=== PATIENT | female | born 1950 | race Caucasian/White ===

== ENCOUNTER 2017-05-23 10:33 | Outpatient (RCR) | payer OTHER ==
[~2017-05-23 10:33] MED LIST: ALLOPURINOL300 MG PO; BACTRIM DS TAB1 EACH PO; D3 PO; FISH OIL 1,0001 EAC1 PO; FLUOCINONIDE 0.05% 1 EA/15 GM TUBE ONE; HYDROXYZINE HCL25 MG PO; LASIX40 MG PO; LEVAMIR SC; LEVAQUIN500 MG PO; LEVEMIR100 UNIT/1 SC; LIDOCAINE VISC 2% SOLN 15 ML UDC ONE; LORAZEPAM1 MG PO; LYRICA50 MG PO; MELOXICAM7.5 MG PO; METOPROLOL TART50 MG PO; NORCO 10-325 T1 EACH PO; OMEPRAZOLE40 MG PO; PAXIL20 MG PO; PEPCID20 MG PO; PLAVIX75 MG PO; POTASSIUM CHLO10 ME1 PO; SIMVASTATIN40 MG PO; SOMA350 MG PO; TRAZODONE HCL100 MG PO; VICTOZA 3-0.6 MG/0.1 SC
[2017-05-23] MEDS ORDERED: LIDOCAINE/PRILOCAINE 2.5-2.5% KIT ONE (14:24)
[2017-05-23] MEDS ORDERED: FLUOCINONIDE 0.05% 1 EA/15 GM TUBE ONE (14:24)
== END 2017-05-26 ==
LOC: WCC 10:33
PROVIDERS: ATTEND Family Medicine Adult Medicine
DX: T86.821 Skin graft (allograft) (autograft) failure (principal); E11.65 Type 2 diabetes mellitus with hyperglycemia; E11.40 Type 2 diabetes mellitus with diabetic neuropathy, unspecified; E11.621 Type 2 diabetes mellitus with foot ulcer; L89.322 Pressure ulcer of left buttock, stage 2; L97.822 Non-pressure chronic ulcer of other part of left lower leg with fat layer exposed; L97.522 Non-pressure chronic ulcer of other part of left foot with fat layer exposed; L97.412 Non-pressure chronic ulcer of right heel and midfoot with fat layer exposed; I87.332 Chronic venous hypertension (idiopathic) with ulcer and inflammation of left lower extremity; S81.801A Unspecified open wound, right lower leg, initial encounter; I82.449 Acute embolism and thrombosis of unspecified tibial vein; I83.12 Varicose veins of left lower extremity with inflammation; I83.11 Varicose veins of right lower extremity with inflammation; I89.0 Lymphedema, not elsewhere classified; R60.0 Localized edema; M10.49 Other secondary gout, multiple sites; S80.212A Abrasion, left knee, initial encounter; I87.2 Venous insufficiency (chronic) (peripheral); I70.203 Unspecified atherosclerosis of native arteries of extremities, bilateral legs; E78.2 Mixed hyperlipidemia; I10 Essential (primary) hypertension; I25.10 Atherosclerotic heart disease of native coronary artery without angina pectoris; I48.92 Unspecified atrial flutter; I50.9 Heart failure, unspecified; J44.9 Chronic obstructive pulmonary disease, unspecified; K29.00 Acute gastritis without bleeding; N18.3 Chronic kidney disease, stage 3 (moderate); W01.198A Fall on same level from slipping, tripping and stumbling with subsequent striking against other object, initial encounter; Z74.01 Bed confinement status; Z91.19 Patient's noncompliance with other medical treatment and regimen; Z91.81 History of falling; Z72.0 Tobacco use

== ENCOUNTER 2017-07-18 11:07 | Outpatient (RCR) | payer OTHER ==
[~2017-07-18 11:07] MED LIST changes: -FLUOCINONIDE 0.05% 1 EA/15 GM TUBE ONE; +MINERAL OIL/PETROLAT/GLYCERI 6OZ BTL ONE
[2017-07-18] MEDS ORDERED: LIDOCAINE VISC 2% SOLN 15 ML UDC ONE (15:34)
[2017-07-18] MEDS ORDERED: MINERAL OIL/PETROLAT/GLYCERI 6OZ BTL ONE (15:34)
[2017-07-18] MEDS ORDERED: CLOTRIMAZOLE/BETAMETHASONE 45 GM CR TP ONE (15:34)
== END 2017-07-24 ==
LOC: WCC 11:07
PROVIDERS: ATTEND Family Medicine Adult Medicine
DX: T86.821 Skin graft (allograft) (autograft) failure (principal); E11.65 Type 2 diabetes mellitus with hyperglycemia; E11.40 Type 2 diabetes mellitus with diabetic neuropathy, unspecified; E11.621 Type 2 diabetes mellitus with foot ulcer; L89.892 Pressure ulcer of other site, stage 2; L97.822 Non-pressure chronic ulcer of other part of left lower leg with fat layer exposed; L97.522 Non-pressure chronic ulcer of other part of left foot with fat layer exposed; L97.412 Non-pressure chronic ulcer of right heel and midfoot with fat layer exposed; I83.12 Varicose veins of left lower extremity with inflammation; I83.11 Varicose veins of right lower extremity with inflammation; I87.332 Chronic venous hypertension (idiopathic) with ulcer and inflammation of left lower extremity; I82.449 Acute embolism and thrombosis of unspecified tibial vein; I89.0 Lymphedema, not elsewhere classified; R60.0 Localized edema; I87.2 Venous insufficiency (chronic) (peripheral); I70.203 Unspecified atherosclerosis of native arteries of extremities, bilateral legs; M10.49 Other secondary gout, multiple sites; E78.2 Mixed hyperlipidemia; I10 Essential (primary) hypertension; I25.10 Atherosclerotic heart disease of native coronary artery without angina pectoris; I48.92 Unspecified atrial flutter; I50.9 Heart failure, unspecified; J44.9 Chronic obstructive pulmonary disease, unspecified; K21.9 Gastro-esophageal reflux disease without esophagitis; N18.3 Chronic kidney disease, stage 3 (moderate); W01.198A Fall on same level from slipping, tripping and stumbling with subsequent striking against other object, initial encounter; Z72.0 Tobacco use; Z74.01 Bed confinement status; Z91.19 Patient's noncompliance with other medical treatment and regimen; Z91.81 History of falling

== ENCOUNTER 2017-08-08 10:43 | Outpatient (RCR) | payer OTHER ==
[~2017-08-08 10:43] MED LIST changes: +LIDOCAINE/PRILOCAINE 2.5-2.5% KIT ONE
== END 2017-08-24 ==
LOC: WCC 10:43
PROVIDERS: ATTEND Family Medicine Adult Medicine
DX: T81.89XA Other complications of procedures, not elsewhere classified, initial encounter (principal); E11.621 Type 2 diabetes mellitus with foot ulcer; E11.69 Type 2 diabetes mellitus with other specified complication; E11.65 Type 2 diabetes mellitus with hyperglycemia; I87.312 Chronic venous hypertension (idiopathic) with ulcer of left lower extremity; I87.331 Chronic venous hypertension (idiopathic) with ulcer and inflammation of right lower extremity; L97.422 Non-pressure chronic ulcer of left heel and midfoot with fat layer exposed; L97.829 Non-pressure chronic ulcer of other part of left lower leg with unspecified severity; L97.319 Non-pressure chronic ulcer of right ankle with unspecified severity; I73.89 Other specified peripheral vascular diseases; I87.2 Venous insufficiency (chronic) (peripheral); R60.0 Localized edema; I10 Essential (primary) hypertension; I12.9 Hypertensive chronic kidney disease with stage 1 through stage 4 chronic kidney disease, or unspecified chronic kidney disease; I50.9 Heart failure, unspecified; M96.89 Other intraoperative and postprocedural complications and disorders of the musculoskeletal system